=== PATIENT | male | born 1985 | race Caucasian/White ===

== ENCOUNTER → 2016-12-01 | Outpatient (REF) | payer OTHER | LOC: M LAB REF 13:16 | PROVIDERS: ATTEND Physician Assistant Medical | DX: J02.9 Acute pharyngitis, unspecified (principal) ==

== ENCOUNTER → 2019-03-17 | Outpatient (REF) | payer OTHER ==
[2019-03-17 13:02] LABS: BASO % 0.5 % (0.0-1.0); EOS # 0.2 10^3/uL (0.0-0.5); EOS % 2.6 % (0.0-3.0); HEMATOCRIT 43.1 % (42.0-52.0); HEMOGLOBIN 14.6 g/dl (13.5-17.5); LYMPH # 2.3 10^3/uL (1.5-5.0); LYMPH % 34.3 % (24.0-44.0); MEAN CORPUSCULAR HGB CONC 33.9 g/dl (32.0-36.5); MEAN CORPUSCULAR VOLUME 88.5 fl (80.0-96.0); MONO # 0.5 10^3/uL (0.0-0.8); NEUTROPHILS # 3.6 10^3/uL (1.5-8.5); NEUTROPHILS % 55.3 % (36.0-66.0); PLATELET COUNT, AUTOMATED 226 10^3/uL (150-450); RED BLOOD COUNT 4.87 10^6/uL (4.30-6.10); WHITE BLOOD COUNT 6.6 10^3/uL (4.0-10.0)
[2019-03-17 13:31] LABS: ALT/SGPT 35 U/L (12-78); BILIRUBIN,TOTAL 1.2 MG/DL (0.2-1.0); BLOOD UREA NITROGEN 13 MG/DL (7-18); CALCIUM LEVEL 9.3 MG/DL (8.5-10.1); CARBON DIOXIDE LEVEL 27 MEQ/L (21-32); CHLORIDE LEVEL 102 MEQ/L (98-107); CREATININE FOR GFR 1.18 MG/DL (0.70-1.30); FREE T4 0.98 NG/DL (0.76-1.46); GLOMERULAR FILTRATION RATE > 60.0 (>60); GLUCOSE, FASTING 80 MG/DL (70-100); POTASSIUM SERUM 3.9 MEQ/L (3.5-5.1); SODIUM LEVEL 139 MEQ/L (136-145); TOTAL PROTEIN 7.2 GM/DL (6.4-8.2)
[2019-03-19 00:12] LABS: TESTOSTERONE FREE (DIRECT) 12.8 pg/mL (8.7-25.1)
== END ==
LOC: M SFHCADAM 09:24
PROVIDERS: ATTEND Physician Assistant Medical
DX: E66.1 Drug-induced obesity (principal); F33.9 Major depressive disorder, recurrent, unspecified; R53.82 Chronic fatigue, unspecified; R06.83 Snoring

== ENCOUNTER → 2019-07-31 | Outpatient (CLI) | payer OTHER, MEDICAID ==
--- NOTE | 2019-07-31 16:34 | REP ---
Clinical: Lower back pain. Technique: AP, lateral, bilateral oblique and coned-down views of the lumbosacral spine. Findings: Alignment and lordosis maintained. No acute fracture / compression injury or subluxation. Moderate focal degenerative changes at L5-S1 includes endplate sclerosis, disc space narrowing, early spurring and facet arthropathy. Impression: Focal degenerative disc disease at L5-S1. Electronically Signed by Martin Ritchie MD 07/31/2019 04:26 P
== END ==
LOC: M ADAMS 16:05
PROVIDERS: ATTEND Physician Assistant Medical
DX: M54.5 Low back pain (principal)

== ENCOUNTER → 2019-08-05 | Outpatient (REF) | payer OTHER, MEDICAID | LOC: M LAB REF 10:36 | PROVIDERS: ATTEND Physician Assistant | DX: J02.9 Acute pharyngitis, unspecified (principal) ==

== ENCOUNTER → 2020-03-22 | Outpatient (CLI) | payer OTHER ==
--- NOTE | 2020-04-01 16:47 | REP ---
SCROTAL SONOGRAPHY HISTORY: Testicular pain. SONOGRAPHIC FINDINGS: Testicular parenchyma is normal and homogeneous. No intratesticular mass lesion is seen on either side. Right testis dimensions are 4.9 x 2.7 x 3.2 cm. Left testicular dimensions are 4.7 x 2.7 x 3.2 cm. There is a small right-sided hydrocele noted incidentally. Testicular Doppler flow is normal and present bilaterally. Resistive indices are measured at 0.55 on the right and 0.52 on the left by Doppler. No epididymal abnormality is seen. IMPRESSION: Normal scrotal sonography. MTDD
== END ==
LOC: M RAD 08:53
PROVIDERS: ATTEND Physician Assistant Medical
DX: N50.819 Testicular pain, unspecified (principal)

== ENCOUNTER → 2020-04-02 | Outpatient (CLI) | payer OTHER ==
--- NOTE | 2020-04-02 19:11 | REPVR ---
PROCEDURE INFORMATION: Exam: MR Lumbar Spine Without Contrast. Exam date and time: 04/02/2020 6:20 PM Age: 35 years old Clinical indication: Pain; Lumbago; Additional info: Lumbargo lbp TECHNIQUE: Imaging protocol: Multiplanar magnetic resonance images of the lumbar spine without intravenous contrast. COMPARISON: MRI-Spine, L.S. without con 02/04/2015 5:29 PM FINDINGS: Vertebrae: Degenerative endplate changes at the inferior endplate of L5 and superior endplate of S1. Otherwise unremarkable. Spinal cord: Normal signal. No cord compression. L1-L2: No significant disc disease. No significant spinal canal stenosis. No neural foraminal stenosis. L2-L3: No significant disc disease. No significant spinal canal stenosis. No neural foraminal stenosis. L3-L4: No significant disc disease. No significant spinal canal stenosis. No neural foraminal stenosis. L4-L5: Mild annular bulge at L4-L5 which in combination with epidural lipomatosis resulting in a moderate central spinal stenosis and crowding of traversing nerve roots. L5-S1: Bulging annulus and disc space narrowing at L5-S1 with a right paracentral posterior disc protrusion mildly impinges on the right S1 nerve root proximal to the ipsilateral neural foramen. Epidural lipomatosis. Bilateral facet joint arthropathy. Kidneys and ureters: Hyperdensities in the right kidney not fully evaluated on this examination dedicated to the lumbar spine likely represent renal cysts. Correlation with renal ultrasound could be obtained if clinically desired. Soft tissues: Unremarkable. IMPRESSION: 1. Mild annular bulge at L4-L5 which in combination with epidural lipomatosis resulting in a moderate central spinal stenosis and crowding of traversing nerve roots. 2. Bulging annulus at L5-S1 with a right paracentral posterior disc protrusion mildly impinges on the right S1 nerve root proximal to the ipsilateral neural foramen. Epidural lipomatosis. Bilateral facet joint arthropathy. Electronically signed by: Mynor Stoddard On 04/02/2020 19:11:12 PM
== END ==
LOC: M RAD 17:31
PROVIDERS: ATTEND Physician Assistant Medical
DX: M51.37 Other intervertebral disc degeneration, lumbosacral region (principal); M51.27 Other intervertebral disc displacement, lumbosacral region; R20.2 Paresthesia of skin

== ENCOUNTER → 2020-05-14 | Outpatient (REF) | payer OTHER ==
[2020-05-14 13:02] LABS: APPEARANCE, URINE CLEAR (CLEAR); BACTERIA, URINE AUTO NEGATIVE (NEGATIVE); BILIRUBIN, URINE AUTO NEGATIVE (NEGATIVE); BLOOD, URINE BLOOD NEGATIVE (NEGATIVE); COLOR, URINE YELLOW (YELLOW); GLUCOSE, URINE (UA) AUTO NEGATIVE (NEGATIVE); KETONE, URINE AUTO NEGATIVE (NEGATIVE); LEUKOCYTE ESTERASE, URINE AUTO NEGATIVE (NEGATIVE); MUCUS, URINE SMALL (NEGATIVE); NITRITE, URINE AUTO NEGATIVE (NEGATIVE); PROTEIN, URINE AUTO NEGATIVE (NEGATIVE); RBC, URINE AUTO 1 /HPF (0-3); SPECIFIC GRAVITY URINE AUTO 1.018 (1.002-1.035); SQUAMOUS EPITHELIAL CELL UR AU 0 /HPF (0-6); UROBILINOGEN, URINE AUTO 0.2 mg/dL (0.0-2.0); WBC, URINE AUTO 1 /HPF (0-3)
== END ==
LOC: M SFHCADAM 11:32
PROVIDERS: ATTEND Physician Assistant Medical
DX: N39.43 Post-void dribbling (principal); N50.811 Right testicular pain; R10.9 Unspecified abdominal pain; R15.1 Fecal smearing

== ENCOUNTER → 2020-08-06 | Outpatient (CLI) | payer OTHER ==
--- NOTE | 2020-08-07 04:52 | REP ---
INDICATION: FLANK PAIN COMPARISON: None TECHNIQUE: Axial noncontrast images from the lung bases to the pubic symphysis with coronal and sagittal reformations. This CT examination was performed using the following dose reduction techniques: Automated exposure control, adjustment of mA and/or kv according to the patient's size, and use of iterative reconstruction technique. FINDINGS: Lung bases are clear. Visualized heart and pericardium normal. Liver, spleen, pancreas, gallbladder, bilateral adrenal glands and kidneys are relatively normal by noncontrast evaluation. There is no evidence for nephroureterolithiasis. Subtle hypodense renal lesions cannot be excluded and may represent small cysts.. The enteric system is unremarkable and without obstruction or acute inflammatory process. Normal terminal ileum and appendix identified in the right lower quadrant. Pelvis demonstrates normal bladder and age-appropriate prostate/seminal vesicles. Small early fat containing right inguinal hernia noted. No ascites. No free air. No adenopathy. No focal inflammatory stranding. Abdominal aorta without aneurysm. Musculoskeletal structures are intact and without acute osseous abnormality. IMPRESSION: 1. No acute abdominopelvic pathology appreciated. 2. No obvious nephroureterolithiasis. 3. Subtle renal hypodensities which may represent cysts cannot be excluded and correlation with renal ultrasound may be warranted. <Electronically signed by Martin Ritchie > 08/07/20 [id number]
== END ==
LOC: M RAD 17:25
PROVIDERS: ATTEND Nurse Practitioner Family
DX: R10.9 Unspecified abdominal pain (principal)

== ENCOUNTER → 2020-09-12 | Outpatient (CLI) | payer OTHER ==
[~2020-09-12] MED LIST: ACET-683 PO; CETI10CH PO; MELA5TAB20 PO; MELO15TA28 PO
== END ==
LOC: M LABSMTC 10:02
PROVIDERS: ATTEND Anesthesiology
DX: Z01.812 Encounter for preprocedural laboratory examination (principal); Z20.822 Contact with and (suspected) exposure to COVID-19

== ENCOUNTER 2020-09-17 09:00 | Day surgery (SDC) | payer OTHER ==
[~2020-09-17] VITALS: Ht 180.3 cm; Wt 110.2 kg
[~2020-09-17 09:00] MED LIST changes: +NS 1,000 ML IV ONE
[2020-09-17] MEDS ORDERED: LIDOCAINE 2% 100MG/5ML SDV (FOR ANES.) As Ordered ONE (10:23)
[2020-09-17] MEDS ORDERED: propofoL 500 MG/50 ML VIAL As Ordered ONE (10:23)
--- NOTE | 2020-09-17 10:38 | ROOR ---
Patient Name: Tal Carreon Procedure Date: 09/17/2020 10:19 AM Date of : 1985 Age: 35 Room: [facility] Gender: Male Note Status: Finalized Procedure: Colonoscopy Indications: Hematochezia, Change in bowel habits Providers: Anthony JEFFERSON MD Referring MD: GABRIELLE Hernandez Requesting Provider: Medicines: Monitored Anesthesia Care Complications: No immediate complications. Procedure: Pre-Anesthesia Assessment: - The heart rate, respiratory rate, oxygen saturations, blood pressure, adequacy of pulmonary ventilation, and response to care were monitored throughout the procedure. The Colonoscope was introduced through the anus and advanced to 15 cm into the ileum. The colonoscopy was performed without difficulty. The patient tolerated the procedure well. The quality of the bowel preparation was good. Findings: The perianal and digital rectal examinations were normal. The terminal ileum appeared normal. The colon (entire examined portion) appeared normal. Biopsies for histology were taken with a cold forceps for evaluation of microscopic colitis. Impression: - The examined portion of the ileum was normal. - The entire examined colon is normal. - Biopsies were taken with a cold forceps for evaluation of microscopic colitis. - (Irritable Bowel Syndrome/IBS suspected.) Recommendation: - Use fiber, for example Citrucel, Fibercon, Konsyl or Metamucil. - Lactose free diet. - Telephone endoscopist for pathology results in 2 weeks. - Continue present medications. Procedure Code(s): --- Professional --- 39986, Colonoscopy, flexible; with biopsy, single or multiple Diagnosis Code(s): --- Professional --- R19.4, Change in bowel habit K92.1, Melena (includes Hematochezia) CPT copyright 2019 [employer]. All rights reserved. The codes documented in this report are preliminary and upon swimming teacher review may be revised to meet current compliance requirements. Anthony Jefferson MD Anthony JEFFERSON MD 09/17/2020 10:37:55 AM Electronically signed by Anthony JEFFERSON MD Number of Addenda: 0 Note Initiated On: 09/17/2020 10:19 AM Estimated Blood Loss: Estimated blood loss: none.
[2020-09-17 11:00] VITALS: BP 141/91
== END 2020-09-17 11:12 | disposition home or self-care (01) ==
LOC: M OPP 09:00
PROVIDERS: ATTEND Internal Medicine Gastroenterology
DX: R92.1 Mammographic calcification found on diagnostic imaging of breast (principal); R19.4 Change in bowel habit; Z79.899 Other long term (current) drug therapy

== ENCOUNTER → 2020-10-31 | Outpatient (CLI) | payer OTHER ==
[~2020-10-31] MED LIST changes: -NS 1,000 ML IV ONE
--- NOTE | 2020-10-31 14:03 | REP ---
INDICATION: RENAL LESION COMPARISON: CT dated 08/06/2020 TECHNIQUE: Real time bhatia scale ultrasound examination using curved array transducer. FINDINGS: Bilateral kidneys are essentially normal in contour, size, echogenicity and reniform shape. Mild cortical lobulations are noted bilaterally. No hydronephrosis, nephrolithiasis, cystic or renal mass lesion. Subtle hypodensities seen on recent CT are not visible by ultrasound. No perinephric fluid collection. Right kidney measures 10.9 x 6.3 x 5.5 cm. Left kidney measures 10.6 x 4.3 x 5.2 cm. The bladder is unremarkable. IMPRESSION: Normal renal ultrasound. If there is further concern consider pre and postcontrast CT of the abdomen with delayed images. <Electronically signed by Martin Ritchie > 10/31/20 1400
== END ==
LOC: M RAD 13:15
PROVIDERS: ATTEND Nurse Practitioner Family
DX: N28.9 Disorder of kidney and ureter, unspecified (principal)

== ENCOUNTER → 2020-12-26 | Outpatient (REF) | payer OTHER ==
[2020-12-26 19:26] LABS: BASO % 0.6 % (0.0-1.0); EOS # 0.1 10^3/uL (0.0-0.5); EOS % 1.4 % (0.0-3.0); HEMATOCRIT 40.1 % (42.0-52.0); HEMOGLOBIN 13.6 g/dl (13.5-17.5); LYMPH % 26.9 % (24.0-44.0); MEAN CORPUSCULAR HEMOGLOBIN 30.1 pg (27.0-33.0); MEAN CORPUSCULAR HGB CONC 33.9 g/dl (32.0-36.5); MEAN CORPUSCULAR VOLUME 88.7 fl (80.0-96.0); MONO # 0.4 10^3/uL (0.0-0.8); MONO % 5.8 % (2.0-8.0); NEUTROPHILS # 4.7 10^3/uL (1.5-8.5); PLATELET COUNT, AUTOMATED 212 10^3/uL (150-450); RED BLOOD COUNT 4.52 10^6/uL (4.30-6.10); WHITE BLOOD COUNT 7.3 10^3/uL (4.0-10.0)
[2020-12-26 19:49] LABS: PERCENT SATURATION 27.8 % (19.7-50.0)
[2020-12-26 19:56] LABS: FOLATE 4.8 NG/ML
== END ==
LOC: M SFHCADAM 16:15
PROVIDERS: ATTEND Physician Assistant Medical
DX: T14.8XXA Other injury of unspecified body region, initial encounter (principal)

== ENCOUNTER → 2021-05-14 | Outpatient (REF) | payer OTHER | LOC: M SFHCPLAZ 12:51 | PROVIDERS: ATTEND Physician Assistant | DX: R05.9 Cough, unspecified (principal) ==

== ENCOUNTER → 2022-06-30 | Outpatient (CLI) | payer OTHER | LOC: M SOG 13:02 | PROVIDERS: ATTEND Orthopaedic Surgery Hand Surgery | DX: M25.511 Pain in right shoulder (principal) ==

== ENCOUNTER → 2022-08-26 | Outpatient (CLI) | payer OTHER ==
[~2022-08-26] MED LIST changes: +**SFHN** LIDOCAINE 1% MDV 20ML VIAL ONE; +ISOVUE-300 61% 100ML VIAL ONE; +PROHANCE 279.3MG/ML 5ML VIAL ONE
== END ==
LOC: M PLAIMG 12:20
PROVIDERS: ATTEND Orthopaedic Surgery Hand Surgery
DX: S46.011A Strain of muscle(s) and tendon(s) of the rotator cuff of right shoulder, initial encounter (principal); Y93.9 Activity, unspecified; Y92.9 Unspecified place or not applicable

== ENCOUNTER → 2022-11-27 | Day surgery (SDC) | payer OTHER ==
[~2022-11-27] VITALS: Ht 180.3 cm; Wt 103.0 kg
[~2022-11-27] MED LIST changes: -**SFHN** LIDOCAINE 1% MDV 20ML VIAL ONE; +ACET1TAB55 PO; +IBUP80TA PO; -ISOVUE-300 61% 100ML VIAL ONE; +LR 1,000 ML IV SCH; -PROHANCE 279.3MG/ML 5ML VIAL ONE; +VITA200016 PO
[2022-11-27 14:36] VITALS: BP 124/86; TEMP 97.6; O2SAT 99
== END | disposition home or self-care (01) ==
LOC: M SDC 14:21
PROVIDERS: ATTEND Student in an Organized Health Care Education/Training Program
DX: M25.511 Pain in right shoulder (principal); Z53.29 Procedure and treatment not carried out because of patient's decision for other reasons; Z91.040 Latex allergy status

== ENCOUNTER → 2023-01-18 | Outpatient (CLI) | payer OTHER ==
[~2023-01-18] MED LIST changes: -LR 1,000 ML IV SCH
== END ==
LOC: M SOG 07:59
PROVIDERS: ATTEND Orthopaedic Surgery
DX: M25.511 Pain in right shoulder (principal)

== ENCOUNTER → 2023-10-27 | Outpatient (REF) | payer OTHER ==
[2023-10-27 19:07] LABS: ALBUMIN 4.4 G/DL (3.2-5.2); ALKALINE PHOSPHATASE 49 U/L (46-116); ALT/SGPT 20 U/L (7.0-40); AST/SGOT 16 U/L (<34); BILIRUBIN,TOTAL 0.9 MG/DL (0.3-1.2); BLOOD UREA NITROGEN 10 MG/DL (9-23); CARBON DIOXIDE LEVEL 29 MMOL/L (20-31); CHLORIDE LEVEL 102 MMOL/L (98-107); CHOLESTEROL LEVEL 199 MG/DL (<200); CREATININE FOR GFR 0.97 MG/DL (0.70-1.30); GLOMERULAR FILTRATION RATE > 60.0 (>60); GLUCOSE, FASTING 103 MG/DL (60-100); LDL CHOLESTEROL 133.2 MG/DL (<100); POTASSIUM SERUM 4.9 MMOL/L (3.5-5.1); SODIUM LEVEL 138 MMOL/L (136-145); THYROID STIMULATING HORMONE 0.767 uIU/ML (0.55-4.78); TOTAL 25(OH) VITAMIN D 35.5 NG/ML (20.0-100.0); TOTAL PROTEIN 7.1 G/DL (5.7-8.2); TRIGLYCERIDES LEVEL 74 MG/DL (<150)
[2023-10-27 19:17] LABS: BASO % 0.7 % (0.0-1.0); EOS # 0.2 10^3/uL (0.0-0.5); EOS % 2.7 % (0.0-3.0); HEMATOCRIT 46.2 % (42.0-52.0); LYMPH # 1.5 10^3/uL (1.5-5.0); LYMPH % 27.5 % (24.0-44.0); MEAN CORPUSCULAR HEMOGLOBIN 29.9 pg (27.0-33.0); MEAN CORPUSCULAR HGB CONC 32.5 g/dl (32.0-36.5); MONO # 0.4 10^3/uL (0.0-0.8); MONO % 6.6 % (2.0-8.0); NEUTROPHILS # 3.4 10^3/uL (1.5-8.5); NEUTROPHILS % 62.1 % (36.0-66.0); PLATELET COUNT, AUTOMATED 229 10^3/uL (150-450); RED BLOOD COUNT 5.02 10^6/uL (4.30-6.10); WHITE BLOOD COUNT 5.5 10^3/uL (4.0-10.0)
== END ==
LOC: M SFHCADAM 11:53
PROVIDERS: ATTEND Physician Assistant Medical
DX: J30.89 Other allergic rhinitis (principal); Z13.220 Encounter for screening for lipoid disorders; Z13.1 Encounter for screening for diabetes mellitus; Z13.29 Encounter for screening for other suspected endocrine disorder

== ENCOUNTER → 2025-05-28 | Outpatient (CLI) | payer OTHER | LOC: M PLAIMG 08:51 | PROVIDERS: ATTEND Family Medicine | DX: J06.9 Acute upper respiratory infection, unspecified (principal); R05.9 Cough, unspecified ==